=== PATIENT | male | born 1995 | race Caucasian/White ===

== ENCOUNTER 2020-03-25 21:41 | Emergency (ER) | payer OTHER, SELFPAY ==
[2020-03-25 21:51] VITALS: BP 105/66; PULSE 92; RESP 16; TEMP 36.7; O2SAT 99
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
--- NOTE | 2020-03-25 22:25 | PC.NURSE ---
Pt refused sutures in lip, educated by this rn and clotilde tejada, continues to refuse.
[2020-03-25 22:31] VITALS: BP 124/86; PULSE 89; RESP 18; TEMP 36.6; O2SAT 97
[2020-03-25] MEDS: Acetaminophen 325 MG TABLET 650 MG PO (22:51)
== END 2020-03-25 23:41 | disposition home or self-care (01) ==
PROVIDERS: Emergency Provider Internal Medicine
DX: S06.0X0A Concussion without loss of consciousness, initial encounter (principal); S01.01XA Laceration without foreign body of scalp, initial encounter; S01.511A Laceration without foreign body of lip, initial encounter; Y04.2XXA Assault by strike against or bumped into by another person, initial encounter; Y93.9 Activity, unspecified; Y92.019 Unspecified place in single-family (private) house as the place of occurrence of the external cause; Y99.9 Unspecified external cause status
CPT/HCPCS: 12002; 70450; 70486; 90471; 90715; 99284

== ENCOUNTER 2020-04-04 17:22 | Emergency (ER) | payer OTHER, SELFPAY ==
[2020-04-04 17:41] VITALS: BP 135/79; PULSE 104; RESP 16; TEMP 36.2; O2SAT 97
== END 2020-04-04 19:04 | disposition left against medical advice (07) ==
PROVIDERS: Emergency Provider Emergency Medicine
DX: Z48.02 Encounter for removal of sutures (principal)
CPT/HCPCS: 99281

== ENCOUNTER 2020-04-05 06:57 | Emergency (ER) | payer OTHER, SELFPAY ==
[2020-04-05 07:04] VITALS: BP 114/92; PULSE 91; RESP 14; TEMP 36.4; O2SAT 98; BMI 19.0
--- NOTE | 2020-04-05 07:24 | PC.NURSE ---
HERE FOR STAPLE REMOVAL. NO DISTRESS. AWAITING
--- NOTE | 2020-04-05 07:36 | ED.WOUNDLAC ---
HPI - Wound/Laceration General Chief Complaint: Skin/Abscess/Foreign Body Stated Complaint: suture removal Time Seen by Provider: 04/05/20 07:36 Source: patient Mode of arrival: ambulatory Limitations: no limitations History of Present Illness HPI narrative: 5 sutures to be removed put in 11 days ago Onset (ago): day(s) (11) Location: scalp Place: home Patient tetanus UTD: Yes Context: accidental Associated symptoms: none Related Data Allergies Allergy/AdvReac Type Severity Reaction Status Date / Time Fish Containing Products Allergy Unknown HIVES Unverified 12/30/19 16:43 shellfish derived Allergy Unknown throat Unverified 12/30/19 16:43 [SHELLFISH DERIVED] closes Review of Systems Review of Systems: Constitutional : No Fever, No Chills, Cardiovascular : No Chest Pain, No SOB Respiratory : No Dyspnea Gastrointestinal : No abdominal pain Musculoskeletal : No Joint Swelling Skin : No rash, healed skin laceration Neuro : No Weakness, No Numbness PMFSH Past Medical History Attestation statement: The following information was validated with the patient. Medical History Autism Social History Social History Alcohol intake: never Advance Directives: No Advance Directives Information Provided: Yes Physical Exam Vital Signs: Vital Signs: Last Vital Signs Temp 97.5 F 04/05/20 07:04 Pulse 91 04/05/20 07:04 Resp 14 04/05/20 07:04 BP 114/92 H 04/05/20 07:04 Pulse Ox 98 04/05/20 07:04 Body Mass Index 19.0 Appearance: Alert. Oriented X3. No acute distress. Eyes: Pupils equal, round and reactive to light. Head: healed laceration on parietal - no signs of infection [address] Neck: Normal inspection. Neck supple. CVS: Normal heart rate and rhythm. Pulses normal. Respiratory: No respiratory distress. Breath sounds normal. Abdomen: Soft and nontender. Skin: Skin warm and dry. Normal skin color. Normal skin turgor. Neuro: Oriented X 3. No motor deficit. No sensory deficit. Procedures Procedure Narrative Procedure Narrative: removal of 5 tristian from scalp - no signs of infection, tolerated well, verbal const MDM - Wound/Laceration MDM Narrative Medical decision making narrative: uninfected uncomplicated staple removal at this time Discharge Plan Discharge Clinical Impression: Removal of staple Patient Disposition: Home, Self-Care Instructions: Staple Care (ED) Additional Instructions: return to ED for any worsening symptoms or concerns Interventions: ED Discharge Assessment Last Done: 04/05/20 07:49 Discharge Date/Time: 04/05/20 07:49
== END 2020-04-05 07:49 | disposition home or self-care (01) ==
PROVIDERS: Emergency Provider Emergency Medicine
DX: Z48.02 Encounter for removal of sutures (principal)
CPT/HCPCS: 99283